=== PATIENT | female | born 1985 | race Caucasian/White ===

== ENCOUNTER 2024-02-12 00:43 | Emergency (ER) | payer BC ==
[~2024-02-12] VITALS: Ht 170.2 cm; Wt 69.1 kg
[2024-02-12 00:59] VITALS: BP 118/80; TEMP 98.1; O2SAT 100
[2024-02-12 01:01] VITALS: PULSE 68; O2SAT 100
[2024-02-12] MEDS: TETRACAINE 0.5% OPHTH DROPS 4ML BOTHEYE ONE (01:35)
[2024-02-12] MEDS: FLUORESCEIN SODIUM 1MG/STRIP EACHEYE ONE (01:35)
[2024-02-12 02:00] VITALS: RESP 16
== END 2024-02-12 02:01 | disposition home or self-care (01) ==
LOC: ER 00:43
DX: H57.8A1 Foreign body sensation, right eye (principal); Z98.890 Other specified postprocedural states
CPT/HCPCS: 99283